=== PATIENT | male | born 1950 | race Caucasian/White ===

== ENCOUNTER → 2022-02-13 | Outpatient (CLI) | payer OTHER ==
--- NOTE | 2022-02-13 18:41 | Diagnostic Imaging Report ---
CT Lung Screening INDICATION: Former smoker, quit 6 months ago with a 30 pack year history. TECHNIQUE: Noncontrast, low-dose CT imaging performed according to lung cancer screening protocol. Auto Exposure Controls were utilized during the CT exam to meet ALARA standards for radiation dose reduction. COMPARISON: None FINDINGS: HEART/MEDIASTINUM: Borderline heart size with scattered prominent coronary artery calcification. Thoracic aortic contour unremarkable. No suggestion for pathologically enlarged mediastinal lymph nodes on limited, noncontrast imaging. LUNGS/MEASURED PULMONARY NODULES: --- Image 205 series 2, 5 mm nodule posterior lateral left lower lobe with perhaps central cavitation -A few additional small scattered micronodules. No infiltrate. OTHER: Small sclerotic foci T3 and T7 vertebral bodies. IMPRESSION: 1. A few scattered nodules within the lungs. Dominant lesion 5 mm. 2. Borderline heart size with scattered prominent coronary artery calcification. LUNG-RADS CATEGORY: 2 LUNG SCREENING MANAGEMENT/RECOMMENDATIONS: Continued annual screening with low dose CT in 12 months. Dictated by: Dictated on workstation # [id number]
== END ==
LOC: RAD 09:45
DX: Z12.2 Encounter for screening for malignant neoplasm of respiratory organs (principal); R91.8 Other nonspecific abnormal finding of lung field; Z87.891 Personal history of nicotine dependence
CPT/HCPCS: 71271